=== PATIENT | female | born 1985 | race Two or more races ===

== ENCOUNTER → 2024-08-11 15:13 | Outpatient (REF) | payer BC, SELFPAY | LOC: WDC 15:13 | PROVIDERS: ATTENDING PHYSICIAN Physician Assistant | DX: Z12.31 Encounter for screening mammogram for malignant neoplasm of breast (principal) | CPT/HCPCS: 77063; 77067 ==

== ENCOUNTER → 2024-11-11 14:03 | Outpatient (REF) | payer BC, SELFPAY | LOC: WDC 14:03 | PROVIDERS: ATTENDING PHYSICIAN Physician Assistant | DX: R92.30 Dense breasts, unspecified (principal) | CPT/HCPCS: 76641 ==